=== PATIENT | female | born 1940 | race Caucasian/White ===

== ENCOUNTER → 2017-01-28 | Outpatient (CLI) | payer MEDICARE ==
[~2017-01-28] MED LIST: AMIODARONE; ASPIRIN PO; BUMETANIDE2 M1 PO; CIPRO250 MG PO; ESTRADIOL0.5 MG PO; GLUCOSAMINE & C1 CAP PO; GLUCOSAMINE-CH1 EA13; HUMULIN R100 U/ML; ISOSORBIDE DINI30 MG PO; KEFLEX500 M1 PO; LANTUS100 U/M1 SQ; LANTUS100 U/ML; LIPITOR PO; LIPITOR40 MG PO; LISINOPRIL10 MG PO; MACROBID100 MG PO; METOPROLOL PO; MULTI-DAY1 TAB PO; NEURONTIN PO; NEURONTIN300 MG PO; NORVASC10 MG PO; NOVOLOG; NOVOLOG100 U/ML SUBQ; PERCOCET5/325 PO; PLAVIX PO; PYRIDIUM PO; SYNTHROID PO; VITAMIN E PO
--- NOTE | ~2017-01-28 | MY11 ---
[facility] A Service of [facility] RADIOLOGY TEXT RESULTS PATIENT: ALEISHA TOBIAS LOCATION: [facility] : 38 UNIT #: [id number] AGE: [address]: Juan C Moreno MD SEX: F ORDER DR: [id number] [facility] [address] [place], [place] [address] [id number] MR#: [id number] Acc #: [id number] NAME: ALEISHA TOBIAS. : 1940 SEX: F STUDY DATE/TIME: 01/28/2017 12:25 UNIT: [facility] ROOM: STUDY DESCRIPTION: MY Mammogram Screening Dig Gonzalo Attending Physician: Juan C Moreno M.D. Referring Physician: Juan C Moreno M.D. Ordering Physician: Juan C Moreno M.D. Primary Care Physician: Juan C Moreno M.D. MEDICAL IMAGING REPORT This report is preliminary unless electronic signature is present EXAM Bilateral digital screening mammogram with CAD. INDICATION Routine screening. No current complaints. No family history of breast cancer. COMPARISONS 05/29/16, 11/28/15, 03/11/14. TECHNIQUE MLO and CC digital views of each breast were obtained. The exam was reviewed with an FDA-approved CAD device. FINDINGS The breasts are heterogenously dense. There are no masses or suspicious calcifications. IMPRESSION No change. No evidence of malignancy. BIRADS category 2N. Patients over the age of 40 are entered into a reminder system with target due date for the next mammogram. A result letter will also be sent to the patient. BIRADS: 2 Benign findings. Dictated by... Eduardo Mroel M.D. THIS IS AN ELECTRONICALLY VERIFIED REPORT Eduardo Morel M.D. at 01/29/2017 6:27 AM [facility] A Service of [facility] RADIOLOGY TEXT RESULTS PATIENT: ALEISHA TOBIAS LOCATION: [facility] : 38 UNIT #: [id number] AGE: [address]: Juan C Moreno MD SEX: F ORDER DR: Aubrey TD: 01/28/2017 17:49 JOB #: [id number] MEDICAL IMAGING REPORT Page 1 of 1 COPY
== END | disposition home or self-care (01) ==
LOC: CWCC 11:55
DX: Z12.31 Encounter for screening mammogram for malignant neoplasm of breast (principal)
CPT/HCPCS: G0202